=== PATIENT | female | born 1990 | race Caucasian/White ===

== ENCOUNTER 2017-03-20 23:28 | Emergency (ER) | payer SELFPAY ==
[2017-03-20] MEDS ORDERED: IPRATROPIUM BROMIDE 0.5 MG/2.5 ML NEB ONE (23:53)
[2017-03-20] MEDS ORDERED: ALBUTEROL 0.083% 2.5 MG/3 ML VIAL.NEB INHALATION ONE (23:53)
[2017-03-21] MEDS ORDERED: ALPRAZolam 0.5 MG TABLET PO ONE (00:11)
--- NOTE | 2017-03-21 00:18 | ER PHYSICIAN DOCUMENTATION ---
Physician Documentation [facility] ([place], [place]) Name:Shameka Broderick Age:26 yrs Sex:Female :1990 Arrival Date:03/20/2017 Time:23:28 Bed4 Private MD:Physician, No ED Demetrius Arguello Disposition: 03/21 00:02 Critical Care: not applicable. sc Disposition: 03/21/17 00:05 Discharged to Home/Self Care. Impression: Hyperventilation Syndrome, Anxiety Reaction. - Condition is Good. - Discharge Instructions: Anxiety Disorder - PANIC ATTACK. - Prescriptions for Xanax 0.5 mg Oral Tablet - take 1 tablet by ORAL route every 8 hours As needed; 10 tablet. - Medical Reconciliation form form. - Follow up: [facility]; When: 1 week; Reason: Continuance of care. - Problem is new. - Symptoms have improved. HPI: 03/20 23:56 This 26 yrs old Female presents to ER via EMS with complaints of Breathing sc Difficulty. 23:56 The patient has shortness of breath during emotionally upset. Onset: The sc symptom(s)/episode began/occurred today. Duration: The symptoms are intermittent. Associated signs and symptoms: Pertinent positives: This patient does not have any pertinent positive signs or symptoms associated with shortness of breath. Severity of symptoms: At their worst the symptoms were mild. Historical: - Allergies: No known drug Allergies; - Home Meds: 1. Albuterol Inhl - PMHx: Asthma; - PSHx: None; - Tetanus: < 10 years. - Ebola Screening: : Patient denies exposure to infectious person. Patient denies travel to an Ebola-affected area in the 21 days before illness onset. . - Immunization history: Flu Vaccine None. - Social history: Smoking status: Patient uses tobacco products, current every day smoker. Patient uses alcohol only on a social basis. - Code Status:: Full code. ROS: 23:56 Constitutional: Negative for fever, chills, and weight loss. sc Eyes: Negative for injury, pain, redness, and discharge. Neck: Negative for injury, pain, and swelling. Cardiovascular: Negative for chest pain, palpitations, and edema. Back: Negative for injury and pain. MS/Extremity: Negative for injury and deformity. Skin: Negative for injury, rash, and discoloration. 23:56 Neuro: Negative for headache, weakness, numbness, tingling, and seizure. sc 23:56 Respiratory: Positive for wheezing. 23:56 Psych: Positive for anxiety, Negative for auditory hallucinations, visual hallucinations. Exam: Constitutional: This is a well developed, well nourished patient who is awake, alert, and in no acute distress. Head/Face: Normocephalic, atraumatic. Eyes: Pupils equal round and reactive to light, extra-ocular motions intact. Lids and lashes normal. Conjunctiva and sclera are non-icteric and not injected. Cornea within normal limits. Periorbital areas with no swelling, redness, or edema. ENT: Nares patent. No nasal discharge, no septal abnormalities noted. Tympanic membranes are normal and external auditory canals are clear. Oropharynx with no redness, swelling, or masses, exudates, or evidence of obstruction, uvula midline. Mucous membranes moist. Neck: Trachea midline, no thyromegaly or masses palpated, and no cervical lymphadenopathy. Supple, full range of motion without nuchal rigidity, or vertebral point tenderness. No meningismus. Chest/axilla: Normal chest wall appearance and motion. Nontender with no deformity. No lesions are appreciated. Cardiovascular: Regular rate and rhythm with a normal S1 and S2. No gallops, murmurs, or rubs. Normal PMI, no JVD. No pulse deficits. Respiratory: Lungs have equal breath sounds bilaterally, clear to auscultation and percussion. No rales, rhonchi or wheezes noted. No increased work of breathing, no retractions or nasal flaring. Abdomen/GI: Soft, non-tender, with normal bowel sounds. No distension or tympany. No guarding or rebound. No evidence of tenderness throughout. Back: No spinal tenderness. No costovertebral tenderness. Full range of motion. Skin: Warm, dry with normal turgor. Normal color with no rashes, no lesions, and no evidence of cellulitis. MS/ Extremity: Pulses equal, no cyanosis. Neurovascular intact. Full, normal range of motion, negative Homans's, calves equal bilaterally. 23:57 Neuro: Awake and alert, GCS 15, oriented to person, place, time, and situation. mi Cranial nerves II-XII grossly intact. Motor strength 5/5 in all extremities. Sensory grossly intact. Cerebellar exam normal. Normal gait. 23:57 Cardiovascular: Rate: normal, Rhythm: regular. 23:57 Respiratory: the patient does not display signs of respiratory distress, Respirations: shallow respirations, tachypnea, Breath sounds: are normal, clear throughout. Vital Signs: 23:43 BP 120 / 80; Pulse 75; Resp 18; Temp 98.1(O); Pulse Ox 100% on Nebulizer; Weight 56.7 lb kg; Height 5 ft. 6 in. (167.64 cm); Pain 0/10; 03/21 00:16 BP 120 / 83; Pulse 70; Resp 16; Pulse Ox 97% on R/A; Pain 0/10; lb 00:16 BP 120 / 83; Pulse 70; Resp 16; Pulse Ox 97% on R/A; Pain 0/10; lb 03/20 23:43 Body Mass Index 20.18 (56.70 kg, 167.64 cm) lb MDM: 03/20 23:39 Patient medically screened. mi 03/21 00:02 Differential diagnosis: Anxiety Reaction. Antibiotic administration: Not indicated. mi Data reviewed: vital signs, nurses notes, and as a result, I will discharge patient. Data interpreted: Pulse oximetry: on room air is 100 %. Dispensed Medications: 03/20 23:59 Drug: Xanax Tablet 1 mg; Route: PO; lb 03/21 00:16 Follow up: BP 120 / 83; Pulse 70 bpm; Resp 16 bpm; Pulse Ox 97% RA; Pain 0/10 Adult lb 00:16 Follow up: Response: Anxiety decreased lb Signatures: Demetrius Murray MD MD mi Concha Pope
--- NOTE | 2017-03-21 00:18 | ER NURSING DOCUMENTATION ---
Nurse's Notes [facility] Name:Shameka Broderick Age:26 yrs Sex:Female :1990 Arrival Date:03/20/2017 Time:23:28 Bed4 Private MD:Physician, No Diagnosis:Hyperventilation Syndrome;Anxiety Reaction Presentation: 03/20 23:40 Presenting complaint: EMS states: short of breath today, used inhaler x 2 without lb relief, positive cough. Transition of care: [place]. Notified ED Physician of Dr. Murray notified. 23:40 Acuity: MOSES 3 lb 23:40 Method Of Arrival: EMS: 410 lb Triage Assessment: 23:42 General: Appears distressed, Behavior is appropriate for age, pleasant. Pain: Denies lb pain. Neuro: No deficits noted. Cardiovascular: No deficits noted. Respiratory: Airway is patent Trachea midline Respiratory effort is even, unlabored, Respiratory pattern is regular, symmetrical, Breath sounds are clear bilaterally. Reports shortness of breath Onset: The symptoms/episode began/occurred today, the patient has mild shortness of breath. Historical: - Allergies: No known drug Allergies; - Home Meds: 1. Albuterol Inhl - PMHx: Asthma; - PSHx: None; - Tetanus: < 10 years. - Ebola Screening: : Patient denies exposure to infectious person. Patient denies travel to an Ebola-affected area in the 21 days before illness onset. . - Immunization history: Flu Vaccine None. - Social history: Smoking status: Patient uses tobacco products, current every day smoker. Patient uses alcohol only on a social basis. - Code Status:: Full code. Screenin:44 Infectious Disease Risk None. Abuse screen: Denies threats or abuse. Denies injuries lb from another. Nutritional screening: No deficits noted. Assessment: 23:44 See Triage Assessment done by same RN. Cardiovascular: Rhythm is sinus rhythm. lb Vital Signs: 23:43 BP 120 / 80; Pulse 75; Resp 18; Temp 98.1(O); Pulse Ox 100% on Nebulizer; Weight 56.7 lb kg; Height 5 ft. 6 in. (167.64 cm); Pain 0/10; 03/21 00:16 BP 120 / 83; Pulse 70; Resp 16; Pulse Ox 97% on R/A; Pain 0/10; lb 00:16 BP 120 / 83; Pulse 70; Resp 16; Pulse Ox 97% on R/A; Pain 0/10; lb 03/20 23:43 Body Mass Index 20.18 (56.70 kg, 167.64 cm) lb ED Course: 03/20 23:29 Patient arrived in ED. em2 23:29 Physician, No is Private Physician. em2 23:39 Demetrius Murray MD is Attending Physician. ca 23:40 Concha Pope is Primary Nurse. lb 23:42 Triage completed. lb 23:44 Valuables Remains with patient Patient has correct armband on for positive lb identification. Bed in low position. Call light in reach. 23:44 Inserted peripheral IV: 20 gauge in left antecubital area and blood collected. lb 03/21 00:03 [facility] is Referral Physician. sc Administered Medications: 03/20 23:59 Drug: Xanax Tablet 1 mg; Route: PO; lb 03/21 00:16 Follow up: BP 120 / 83; Pulse 70 bpm; Resp 16 bpm; Pulse Ox 97% RA; Pain 0/10 Adult lb 00:16 Follow up: Response: Anxiety decreased lb Outcome: 00:05 Discharge ordered by . sc 00:16 Discharged to home ambulatory. lb 00:16 Condition: stable 00:16 Discharge Assessment: Patient awake, alert and oriented x 3. No cognitive and/or functional deficits noted. Patient verbalized understanding of disposition instructions. 00:16 Discharge instructions given to Instructed on discharge instructions, follow up and referral plans. no drinking with medication, no driving heavy equipment. 00:16 IV D/Sudhir 00:18 Patient left the ED. lb Signatures: Demetrius Murray MD MD ca Mein-reg, Destiny-reg em2 Concha Pope lb
== END 2017-03-21 00:18 | disposition home or self-care (01) ==
LOC: ER 23:28
DX: F45.8 Other somatoform disorders (principal); F41.9 Anxiety disorder, unspecified; R06.2 Wheezing; J45.909 Unspecified asthma, uncomplicated; Z79.899 Other long term (current) drug therapy; Z99.89 Dependence on other enabling machines and devices; Z74.3 Need for continuous supervision
CPT/HCPCS: 99284; A0425; A0427; J7613; J7644